=== PATIENT | male | born 1990 | race Caucasian/White ===

== ENCOUNTER 2019-01-01 09:49 | Emergency (ER) | payer OTHER ==
[~2019-01-01] VITALS: Ht 170.2 cm; Wt 66.7 kg
--- NOTE | 2019-01-01 09:57 | NUR ---
BIBPD W C/O CLAVICLE PAIN, TO ER BED 15, HOOKED TO MONITOR, AWAITING MD LEE
--- NOTE | 2019-01-01 10:10 | NUR ---
DR MORILLO AT BEDSIDE FOR EVAL
[2019-01-01 11:05] VITALS: BP 118/88
[2019-01-01] MEDS ORDERED: ACETAMINOPHEN ES 500 MG TABLET ONE (22:59)
== END 2019-01-01 11:30 | disposition home or self-care (01) ==
LOC: ER 10:05
DX: S20.212A Contusion of left front wall of thorax, initial encounter (principal); X58.XXXA Exposure to other specified factors, initial encounter; Y93.89 Activity, other specified; Y92.89 Other specified places as the place of occurrence of the external cause; Y99.8 Other external cause status
CPT/HCPCS: 71045; 99283; A4606